=== PATIENT | male | born 1940 | race African-American/Black ===

== ENCOUNTER 2023-10-10 20:41 | Emergency (ER) | payer SELFPAY ==
[~2023-10-10] VITALS: Ht 177.8 cm; Wt 80.0 kg
[2023-10-10 20:49] VITALS: O2SAT 98
[2023-10-10] MEDS ORDERED: MORPHINE SULFATE 4 MG/ML INJ (FOR IV/IM USE) IV STA (21:19)
[2023-10-10] MEDS ORDERED: ONDANSETRON HCL 4MG/2ML INJ IV STA (21:19)
[2023-10-10 23:26] LABS: HEMATOCRIT. 33.9 % (42.0-52.0); HEMOGLOBIN. 11.3 g/dL (14.0-18.0); MEAN CORPUSCULAR HGB CONC 33.2 g/dL (31.0-37.0); MEAN CORPUSCULAR VOLUME 93.3 fL (80.0-94.0); PLATELET 290 x1000/uL (130-400); RED BLOOD CELL COUNT 3.63 mill/uL (4.7-6.1); RED CELL DISTRIBUTION WIDTH 13.8 % (11.6-14.6); WHITE BLOOD COUNT 10.2 x1000/uL (4.5-11.0)
[2023-10-10] MEDS: SODIUM CHLORIDE 0.9% 1,000 ML IV ONE (23:27)
[2023-10-10 23:32] LABS: CHLORIDE 101 mEq/L (98-107); SODIUM 137 mEq/L (136-145)
[2023-10-10 23:33] LABS: CALCIUM 9.9 mg/dL (8.7-10.4); CARBON DIOXIDE 26 mEq/L (21-32)
[2023-10-10 23:38] LABS: CREATININE 2.2 mg/dL (0.6-1.3); GLUCOSE 156 mg/dL (70-105)
[2023-10-10 23:39] LABS: ETHANOL BLOOD < 10 mg/dL (<10); UREA NITROGEN BLOOD 38 mg/dL (9-23)
[2023-10-10] MEDS: MORPHINE SULFATE 4 MG/ML INJ (FOR IV/IM USE) IV NR (23:39)
[2023-10-10] MEDS: ONDANSETRON HCL 4MG/2ML INJ IV NR (23:39)
[2023-10-10 23:40] LABS: ALANINE AMINOTRANSFERASE 11 IU/L (10-49); ALBUMIN 3.9 g/dL (3.2-4.8); ASPARTATE AMINOTRANSFERASE 18 IU/L (<34); LACTIC ACID 2.3 mmol/L (0.4-2.0)
[2023-10-10 23:41] LABS: BILIRUBIN DIRECT 0.2 mg/dL (<=3.0); BILIRUBIN TOTAL 0.4 mg/dL (0.1-1.0); DIFFERENTIAL COMMENT 1; PROTEIN TOTAL 7.4 g/dL (6.0-8.3)
[2023-10-10 23:53] LABS: PROTHROMBIN TIME 10.8 sec (9.6-11.0)
[2023-10-11] MEDS ORDERED: ONDA4TAB11 PO (01:13)
[2023-10-11] MEDS ORDERED: AMOX1TAB16 MT (01:13)
[2023-10-11] MEDS: AMOXICILLIN/POTASSIUM CLAVULANATE 875/125MG TAB PO ONE (01:26)
[2023-10-11 01:45] VITALS: BP 164/63; PULSE 73; RESP 16; TEMP 98
[2023-10-11 08:30] LABS: PLATELET ESTIMATE NORMAL
== END 2023-10-11 02:05 | disposition home or self-care (01) ==
LOC: ER 20:41
DX: K57.92 Diverticulitis of intestine, part unspecified, without perforation or abscess without bleeding (principal); N17.9 Acute kidney failure, unspecified; E11.9 Type 2 diabetes mellitus without complications; I10 Essential (primary) hypertension
CPT/HCPCS: 80076; 80048; 80320; 83605 ×2; 83690; 85025; 85610; 86850; 86900; 86901; 36415; 74176; 96361; 96374; 96375; 99285; J2405; J2270; J7030; G0480